=== PATIENT | female | born 1985 | race African-American/Black ===

== ENCOUNTER 2018-11-29 04:05 | Emergency (ER) | payer OTHER ==
[~2018-11-29] VITALS: Ht 152.4 cm; Wt 54.4 kg
--- NOTE | 2018-11-29 04:38 | NUR ---
patient came from home, states she is 9 weeks and was bleeding earlier before coming in. patient states she is currently not actively bleeding. patient denies any pain at this time.
--- NOTE | 2018-11-29 04:49 | NUR ---
pelvic examination done by Dr. Harvey with warehouse delivery driver at bedside, Kathie RN,.
[2018-11-29 05:03] LABS: *BILIRUBIN,URIN NEGATIVE (NEGATIVE); *CLARITY,URINE CLEAR (CLEAR); *COLOR,URINE YELLOW (YELLOW); *KETONES,URINE NEGATIVE (NEGATIVE); LEUKOCYTE ESTERASE ,URINE NEGATIVE (NEGATIVE); NITRITE, URINE NEGATIVE (NEGATIVE); PH,URINE 6.5 (5.0-8.0); UGLUCOSE NEGATIVE (NEGATIVE)
[2018-11-29 05:12] LABS: BASOPHILS # (AUTO) 0.1 K/uL (0.0-8.0); BASOPHILS % (AUTO) 0.8 % (0.0-2.0); EOSINOPHILS # (AUTO) 0.2 K/uL (0.0-0.7); EOSINOPHILS % (AUTO) 3.2 % (0.0-7.0); HEMOGLOBIN 12.6 g/dL (10.9-14.3); LYMPHOCYTES # (AUTO) 2.2 K/uL (20.0-40.0); LYMPHOCYTES % (AUTO) 31.7 % (20.5-51.5); MEAN CORPUSCULAR HEMOGLOBIN 29.8 uug (24.7-32.8); MEAN CORPUSCULAR HGB CONC 34 g/dL (32.3-35.6); MEAN CORPUSCULAR VOLUME 87.9 fL (75.5-95.3); MONOCYTES # (AUTO) 0.7 K/uL (2.0-10.0); MONOCYTES % (AUTO) 9.5 % (0.0-11.0); NEUTROPHILS # (AUTO) 3.8 K/uL (1.8-8.9); NEUTROPHILS % (AUTO) 54.8 % (38.5-71.5); PLATELET COUNT (AUTO) 271 K/uL (179-408); RED BLOOD CELL COUNT(AUTO) 4.22 MIL/uL (3.63-4.92)
[2018-11-29 05:27] LABS: BILIRUBIN,DIRECT 0.1 mg/dL (0.0-0.2); BILIRUBIN,TOTAL 0.7 mg/dL (0.2-1.0); CREATININE 0.8 mg/dL (0.6-1.3); POTASSIUM 3.7 mmol/L (3.5-5.1); TOTAL PROTEIN, SERUM 7.5 g/dL (6.4-8.2)
[2018-11-29 05:36] LABS: *BLOOD, URINE TRACE (NEGATIVE)
[2018-11-29 05:40] LABS: RBC,URINE 0-3 /HPF (0-3)
[2018-11-29 05:41] LABS: BACTERIA,URINE NONE SEEN /HPF (NONE SEEN); MUCUS,URINE FEW /LPF (0-FEW); SQUAMOUS EPITHELIAL CELL,UR FEW /HPF (NONE SEEN)
[2018-11-29 06:31] VITALS: BP 102/81
--- NOTE | 2018-11-29 06:31 | NUR ---
Patient discharged to home in stable conditon. Written and verbal after care instructions given. Patient verbalizes understanding of instructions.Patient ambulatory with steady gait. exit care paockage and personal belongings taken home with the patient at discharge. Patient denies any pain/discomfort at this time.
== END 2018-11-29 06:32 | disposition home or self-care (01) ==
LOC: ER 04:15
DX: O20.0 Threatened abortion (principal); O20.8 Other hemorrhage in early pregnancy; Z3A.09 9 weeks gestation of pregnancy
CPT/HCPCS: 36415; 76856; 85025; 86850; 86900; 86901; A4663